=== PATIENT | male | born 1970 | race Caucasian/White ===

== ENCOUNTER 2019-11-09 19:39 | Inpatient (IN) | payer OTHER ==
[~2019-11-09] VITALS: Ht 175.3 cm; Wt 97.1 kg
[2019-11-09 19:46] VITALS: Ht 175.3 cm; Wt 97.1 kg
[2019-11-09 22:43] LABS: BASOPHIL % 0.2 % (0-2); PLATELET COUNT 209 x10^3mcL (130-400)
[2019-11-09 22:45] LABS: RED CELL DISTRIBUTION WIDTH 14.8 % (11.5-14.5)
[2019-11-09 22:52] LABS: CALCIUM 8.7 mg/dL (8.5-10.1); CARBON DIOXIDE 28.7 mmol/L (21-32); CHLORIDE SERUM 104 mmol/L (98-107); GFR1 > 60 mL/min; GLUCOSE SERUM 88 mg/dL (74-106); POTASSIUM SERUM 3.8 mmol/L (3.5-5.1); SODIUM SERUM 140 mmol/L (136-145)
[2019-11-09 22:56] LABS: ALBUMIN 4.4 g/dL (3.4-5.0); ALKALINE PHOSPHATASE 86 U/L (46-116); ALT/SGPT 35 U/L (16-63); AST/SGOT 23 U/L (15-37); BILIRUBIN TOTAL 0.5 mg/dL (0.20-1.00); TOTAL PROTEIN, SERUM 7.5 g/dL (6.4-8.2)
[2019-11-10 01:46] VITALS: BP 131/86
[2019-11-10 05:32] VITALS: BP 108/70
[2019-11-10 06:28] LABS: CALCIUM 8.3 mg/dL (8.5-10.1); CARBON DIOXIDE 29.8 mmol/L (21-32); CHLORIDE SERUM 104 mmol/L (98-107); CREATININE SERUM 0.8 mg/dL (0.7-1.3); GFR1 > 60 mL/min; GLUCOSE SERUM 86 mg/dL (74-106); POTASSIUM SERUM 4.1 mmol/L (3.5-5.1); SODIUM SERUM 139 mmol/L (136-145)
[2019-11-10 06:33] LABS: MAGNESIUM 2.2 mg/dL (1.8-2.4); PHOSPHOROUS 3.5 mg/dL (2.5-4.9)
[2019-11-10 06:43] LABS: BASOPHIL % 0.2 % (0-2); PLATELET COUNT 188 x10^3mcL (130-400); RED CELL DISTRIBUTION WIDTH 15.1 % (11.5-14.5)
[2019-11-10 09:01] VITALS: BP 128/83
[2019-11-10 17:03] VITALS: BP 116/79
[2019-11-10 20:55] VITALS: BP 115/75
[2019-11-11 05:26] VITALS: BP 133/87
[2019-11-11 12:06] VITALS: BP 109/77
[2019-11-11 17:31] VITALS: BP 113/76
[2019-11-11 21:40] VITALS: BP 111/73
[2019-11-12 06:08] VITALS: BP 95/61
[2019-11-12 08:12] VITALS: BP 102/71
[2019-11-12] MEDS ORDERED: ACETAMINOPHEN-H1 TA1 PO (11:32)
[2019-11-12 12:06] VITALS: BP 117/71
[2019-11-12 12:20] VITALS: BP 117/71
== END 2019-11-12 14:00 | disposition home or self-care (01) | DRG 505 ==
LOC: ED 19:39 → MU 11-10 00:39
PROVIDERS: Emergency Medicine; Internal Medicine; Podiatrist Foot & Ankle Surgery; ADMIT Internal Medicine Pulmonary Disease; ATTEND Internal Medicine Pulmonary Disease
PROC: 0SGM04Z Fusion of Right Metatarsal-Phalangeal Joint with Internal Fixation Device, Open Approach (ICD-10-PCS; principal; 2019-11-11 07:30)
DX: S92.301A Fracture of unspecified metatarsal bone(s), right foot, initial encounter for closed fracture (principal); V87.8XXA Person injured in other specified noncollision transport accidents involving motor vehicle (traffic), initial encounter; Y93.89 Activity, other specified; Y92.89 Other specified places as the place of occurrence of the external cause; Y99.8 Other external cause status; R73.03 Prediabetes
CPT/HCPCS: G0378; J0690; J1650; J2175; J2250; J2270; J2405; J3010; J3490; J7030; Q0092